=== PATIENT | female | born 1970 | race Caucasian/White ===

== ENCOUNTER → 2019-07-17 07:33 | Day surgery (SDC) | payer BC ==
[~2019-07-17 07:33] MED LIST: Acetaminophen TAB* 325 MG ONE; Acetaminophen TAB* 325 MG PO ONE; Buffered Lidocaine 1% SYRIN* 1 ML/SYRINGE INTRADERM ONE; Bupivacaine 0.25% SDV PF* 10 ML VIAL INJ ONE; Famotidine IV* 10 MG/ML 2 ML (20 mg) IV ONE; Famotidine IV* 10 MG/ML 2 ML (20 mg) ONE; Glycopyrrolate IV* 0.2 MG/ML 1 ML VIAL ONE; HYDROmorphone INJ1* 1 MG/ML SYRINGE ONE; Lactated Ringers 1000 ML Bag* 1,000 ML IV SCH; Lidocaine 2% PF* 10 ML AMP ONE; Midazolam* 1 MG/ML 2 ML VIAL (2 MG) ONE; Naloxone* 0.4 MG/ML 1 ML VIAL IV PRN; Neostigmine Methylsulfate* 3 MG/3 ML SYRINGE ONE; Ondansetron INJ* 2 MG/ML VIAL IV PRN; Ondansetron INJ* 2 MG/ML VIAL ONE; PROCHLORPERAZINE INJ 5 MG/ML 2 ML VIAL IV PRN; Propofol* 10 MG/ML 20 ML BTL ONE; ROPIVACAINE 5 MG/ML 30 ML BTL (0.5%) ONE; Rocuronium* 10 MG/ML VIAL ONE; ceFAZolin 2 GM in NS PREMIX(*) 2 GM/100 ML BAG IVPB ONE; diPHENhydraMINE IV* 50 MG/ML 1 ml VIAL (BENADRYL) IV PRN; fentaNYL* 50 MCG/ML 2 ML VIAL (100 MCG VIAL) ONE; oxyCODONE TAB* 5 MG TAB ONE
[2019-07-17 13:23] VITALS: BP 132/67
[2019-07-17] MEDS: HYDROmorphone INJ1* 1 MG/ML SYRINGE IV PRN ×2 (13:25→13:35)
[2019-07-17] MEDS: oxyCODONE TAB* 5 MG TAB PO PRN ×2 (13:26→14:00)
--- NOTE | 2019-07-17 17:28 | OP ---
Operative Report - Blank - Operative Report Date of Operation: 07/17/19 Note: PATIENT: Adan Oquendo DATE OF : 1970 DATE OF SURGERY: 07/17/2019 SURGEON: Matthias Salmon MD GRAINING PRESS OPERATOR: JAMARCUS Flores, whos assistance was necessary for positioning, retraction, help with instrumentation, and closure. ANESTHESIOLOGIST: Dr. 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 Angular deformity of the distal right lower leg. 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 Angular deformity of the distal right lower leg. OPERATION: 1. Right distal tibial closing wedge osteotomy 2. Right distal fibula fracture nonunion ORIF with tibial bone grafting ANESTHESIA: General + block IMPLANTS: Arthrex plates and screws TOURNIQUET TIME: Less than 2 hours with a well-padded thigh tourniquet at 250mmHg SPECIMENS: none ESTIMATED BLOOD LOSS: minimal COMPLICATIONS: none STATUS: Stable from the operating room to the recovery room and then home. INDICATIONS FOR PROCEDURE: Ruben sustained a right distal fibular fracture treated nonoperatively at an outside institution. When she returned for followup, there was a new distal tibial metaphyseal fracture and the ankle/lower leg had collapsed into valgus. Both operative and non operative treatment alternatives were reviewed. Further, the nature and risks of surgery were reviewed in careful detail, in the office as well as the pre-operative holding area. Our discussions regarding the risks of surgery included, but were not limited to, infection, wound problems, nerve injury, neuroma, RSD, persistent symptoms, blood clot, nonunion, malunion, post- traumatic arthritis, hardware failure, failure of the surgery, and even the remote chance of catastrophic complication. DESCRIPTION OF PROCEDURE: The patient was seen in the preoperative holding unit and informed written consent was obtained. The appropriate extremity was marked. The patient was then brought to the operating room and carefully positioned on the operating room table. Anesthesia was induced. All bony prominences were padded with great care. A well-padded thigh tourniquet was placed. A chlorhexidine based pre- scrub was performed followed by a chloraprep prep and drape in standard sterile fashion. A surgical safety pause was then conducted in which we confirmed the appropriate patient, extremity, planned procedure, availability of equipment, indication and administration of prophylactic antibiotics, and DVT prophylaxis in the form of a compression boot on the non-surgical extremity. I began with Esmarch exsanguination of the limb and inflated the tourniquet. I made a longitudinal incision overlying the medial aspect of the distal tibia. Dissection was taken down until the level of the bone. The BO was identified fluoroscopically. Two guidewires were placed to plan out the trajectory of the tibial osteotomy cuts based on my preoperative planning. Once I was happy with the placement of these guidewires, I used an oscillating saw blade to perform the osteotomy cuts in the distal tibia. I then excised the wedge of bone. I then used a couple of pointed reduction clamps to reduce the osteotomy site. This was checked fluoroscopically. I then placed a posterior distal tibia plate medially. Distal screws were placed and then a proximal screw was placed in compression mode. Two more screws were placed proximally. These all had excellent purchase. This compressed the osteotomy site nicely. I then took the wedge of bone from the tibia and used a bone mill to break it up for bone grafting. I then utilized a laterally based incision overlying the distal fibula. I dissected down through the soft tissue layers to expose the distal fibula. I removed the callus and fibrinous tissue at the nonunion site. This was excised with a Rongeur. I then used an osteotome to free up the distal fibular fracture site. I used a 2.4 mm angelo to freshen up the fracture edges. I then used fluoroscopy to bring the distal fibular fragment into proper alignment to restore the ankle mortise. An anatomic distal fibular plate was then placed laterally over the fibula. Bone graft was packed into the fracture site. I filled the holes in the plate with screws. I used fluoroscopy to confirm placement. I then performed a stress examination of the ankle and no instability was appreciated. At this point, we irrigated copiously and then closed in layers meticulously utilizing #1 Vicryl in the deep layer, 3-0 Monocryl for the subdermal layer and 3-0 nylon for the skin. A sterile dressing was then applied followed by a splint with the ankle in a neutral position. The patient was then awakened from anesthesia and transferred to the recovery room in stable condition. There were no complications. All needle and sponge counts were correct at the end of the case. ATTESTATION: I attest I was present and scrubbed and performed the critical portions of the procedure myself. POSTOPERATIVE PLAN: The postop plan is for [id number] for an anticipated duration of 6-8 weeks. Follow-up will be in 2 weeks. At that time we will likely transition into a [id number], short-leg cast.
== END | disposition home or self-care (01) ==
LOC: OR 07:33
PROVIDERS: ATTEND Orthopaedic Surgery
DX: S82.391K Other fracture of lower end of right tibia, subsequent encounter for closed fracture with nonunion (principal); S82.61XK Displaced fracture of lateral malleolus of right fibula, subsequent encounter for closed fracture with nonunion; Z87.891 Personal history of nicotine dependence; F41.8 Other specified anxiety disorders; W10.9XXD Fall (on) (from) unspecified stairs and steps, subsequent encounter; Y92.9 Unspecified place or not applicable
CPT/HCPCS: 76000; A9270-GY; C1713; C1776; J0690; J1170; J2001; J2250; J2405; J2704; J2710; J2795; J3010; J3490